=== PATIENT | male | born 1960 | race Caucasian/White ===

== ENCOUNTER 2016-09-16 22:00 | Inpatient (IN) | payer OTHER ==
[~2016-09-16] VITALS: Ht 185.4 cm; Wt 101.4 kg
[~2016-09-16 22:00] MED LIST: OXYC30TA PO; PAXI20TA26 PO; XANA2TAB2 PO
[2016-09-16 23:10] VITALS: BP 139/84; PULSE 70; RESP 16; TEMP 97.9; O2SAT 97
[2016-09-16] MEDS ORDERED: LORazepam 2 MG/ML VIAL IM PRN (23:45)
[2016-09-16] MEDS ORDERED: LORazepam 1 MG TAB PO PRN (23:45)
[2016-09-16] MEDS ORDERED: MAGNESIUM HYDROXIDE SUSP 30 ML CUP PO PRN (23:45)
[2016-09-16] MEDS ORDERED: ALUMINUM/MAGNESIUM/SIMETH 30 ML CUP PO PRN (23:45)
[2016-09-16] MEDS ORDERED: ACETAMINOPHEN 325 MG TAB PO PRN (23:45)
[2016-09-17] MEDS ORDERED: ZYPR5TAB PO (00:03)
[2016-09-17] MEDS ORDERED: REME15TA PO (00:03)
[2016-09-17 05:36] VITALS: BP 137/87; PULSE 77; RESP 18; TEMP 98; O2SAT 97
[2016-09-17] MEDS: NICOTINE 21 MG/24 HR PATCH T-DERMAL SCH (08:16)
[2016-09-17] MEDS ORDERED: traZODone HCL 50 MG TAB PO PRN (09:45)
[2016-09-17] MEDS: CEPHALEXIN MONOHYDRATE 500 MG CAP PO SCH ×2 (09:45→21:51)
[2016-09-17] MEDS ORDERED: hydrOXYzine HCL 50 MG TAB PO PRN (09:45)
[2016-09-17] MEDS: SULFAMETHOXAZOLE-TRIMETHOPRIM DS 800-160 MG TAB PO SCH ×2 (09:45→21:51)
--- NOTE | 2016-09-17 09:48 | HHI.HP ---
Provisional Diagnosis Admission Date Sep 16, 2016 at 22:00 [place] I. 1. Adjustment disorder, unspecified Suspect malingering for mcfp 2. Polysubstance abuse including cannabis and amphetamines [place] II. 1. Antisocial personality traits [place] V. GAF 50 presently Certification of Person's Competence To Provide Express and Informed Consent I have personally examined Amber Ro , a person being served at [facility] [[email or web address]] on, Sep 17, 2016 09:35. Express and informed consent means consent voluntarily given in writing, by a competent person, after sufficient explanation and disclosure of the subject matter involved to enable the person to make a knowing and willful decision without any element of force, fraud, deceit, duress, or other form of constraint or coercion. This person is 18 years of age or older, is not now known to be incompetent to consent to treatment with a guardian advocate, and does not have a health care surrogate or proxy currently making medical treatment decisions. I have found this person to be one of the following: [x] Competent to provide express and informed consent, as defined above, for voluntary admission to this facility and is competent to provide express and informed consent for treatment. He/she has the consistent capacity to make well reasoned, willful, and knowing decisions concerning his or her medical or mental health treatment. The person fully and consistently understands the purpose of the admission for examination/placement and is fully capable of personally exercising all rights assured under [place] Incompetent to provide express and informed consent to voluntary admission, and this is incompetent to provide express and informed consent to treatment. The person must be transferred to involuntary status and a petition for a guardian advocate filed with the Circuit Court. [] Refusing to provide express and informed consent to voluntary admission but is competent to provide express and informed consent for treatment. The person must be discharged or transferred to involuntary status. Form shall be completed within 24 hours of a person's arrival at the receiving facility and filed in the clinical record of each person: 1. Admitted on a voluntary basis 2. Permitted to provide express and informed consent to his/her own treatment 3. Allowed to transfer from involuntary to voluntary status 4. Prior to permitting a person to consent to his or her own treatment after having been previously found incompetent to consent to treatment. History of Present Illness Capacity: Has Capacity HPI Mr. Ro is a 56-year-old male with a reported history of bipolar disorder who presents in transfer from [facility] under a Gonzales act. Documentation from [place] reviewed. Patient presented there with reports of suicidal ideation either to hang himself or to set himself on fire. He was placed under a Gonzales act by the ED provider. Urine toxicology at outside hospital was positive for cannabinoids and amphetamines. Reviewing our own electronic medical record, I note that the patient presented to the ED in 2010 following a Xanax ingestion. Patient seen and examined with counselor and his nurse. Chart reviewed. Case discussed with nursing staff. The patient presents as singularly unengaged in the interview. He is a fairly vague historian. Antisocial personality traits are noted. When I asked why the patient has come into the hospital he says that he is not sure. He does say that he wants to get on medications, although it is unclear for what symptomatology. He does not describe any depressive or hypomanic/manic symptoms. He denies suicidal or homicidal ideation at this time. He contracts for safety. He denies audiovisual hallucinations and I can elicit no delusional material. The remainder of the psychiatric ROS is negative. Past psychiatric history: The patient reports a history of bipolar disorder, reportedly diagnosed here at age 18. He is not currently under the care of a psychiatrist. He is on no psychotropic medications. He apparently was admitted to [facility] within the last month but reportedly lost the psychotropics that he was provided on discharge and did not follow-up. He denies a history of suicide attempts. Family history: Patient is unsure of family history of mental illness. He denies a family history of substance use disorder or suicide. Chemical dependency history: The patient reports occasional cannabis use. He also reports occasional amphetamine use and insists that his last use of either substance was over a week ago. Social history: The patient is presently without stable housing. He was apparently residing with his mother and stepbrother by did not get along with the latter and so is no longer welcome in that home. He is single. He has 2 sons. He denies any or legal history. Denies any access to guns or firearms. Denies any history of physical, verbal or sexual abuse. He attended school through the 10th grade and subsequently got a GED. He is not presently working. Review of Systems Except as stated in HPI: all other systems reviewed are Neg Past Psych History Psychological trauma history See above Violence risk - others (6 mos) Denies HI. No known h/o violence. Substance use is a chronic risk factor. Violence risk - self (6 mos) Denies SI. Denies h/o SA. Denies FH SA. Substance use is a risk factor. Substance Abuse History Drugs/Alcohol past 12 months See above Past Family Social History Coded Allergies: Valium (Verified Allergy, Severe, 11/19/10) Pt states he does not like the way med makes him feel. Past Medical History See EMR Reported Medications Olanzapine (Zyprexa)5 Mg Tab5 Mg PO BID #60 TAB Ref 0 09/17/16 Mirtazapine (Remeron)15 Mg Tab15 Mg PO HS #30 TAB Ref 0 09/17/16 Alprazolam (Xanax 2 mg)2 Mg Tab2 Mg PO BID 11/19/10 Paroxetine Hcl (Paxil)20 Mg Tab20 Mg PO DAILY 11/19/10 Oxycodone 30 Mg Tab30 Mg PO QID 11/19/10 Current Medications Medications (Trade) Dose Ordered Sig/Lin Route Start Time Stop Time Status Last Admin (Tylenol) 650 mg Q4H PRN PO 09/16/16 23:45 (Milk Of Magnesia Liq) 30 ml DAILY PRN PO 09/16/16 23:45 (Mag-Al Plus Susp Liq) 30 ml Q6H PRN PO 09/16/16 23:45 (Habitrol 21 Mg Patch.24 Hr) 1 patch DAILY T-DERMAL 09/17/16 09:00 Miscellaneous Information 1 HS T-DERMAL 09/17/16 21:00 (Ativan) 1 mg Q6H PRN PO 09/16/16 23:45 (Ativan Inj) 1 mg Q6H PRN IM 09/16/16 23:45 Family History See above Social History See above Patient's Strengths (min. 2) In monitored setting. Verbally fluent. Physical Exam PE completed at outside hospital. On my exam, patient is in no distress. No motor abnormalities noted. Labs and vitals reviewed: Vital Signs Vital Signs Date Time Temp Pulse Resp B/P Pulse Ox O2 Delivery O2 Flow Rate FiO2 09/17/16 05:36 98.0 77 18 137/87 97 Lab Results Laboratories from outside hospital reviewed: CBC unremarkable. CMP reveals mild hyperglycemia in a nonfasting sample. Very mild transaminitis. Urinalysis reviewed. Urine toxicology positive for amphetamines and cannabinoids. Alcohol level undetectable. Mental Status Examination Patient is in hospital gown. He is fairly well groomed and maintaining basic hygiene. He is awake and alert and oriented to person and hospital at least. No motor abnormalities noted. Speech somewhat slow but otherwise within normal limits for tone and volume. Language and fund of knowledge average. Focus and concentration fairly intact. Memory grossly intact on clinical exam. No issues with mood described, affect is somewhat restricted and dysphoric. Thought process linear. No loosening of associations. No delusional material elicited. Denies audiovisual hallucinations. Denies suicidal or homicidal ideation, intent or plan. Insight and judgment are likely chronically poor. Assessment & Plan Problem List: (1) Adjustment disorder ICD Code: F43.20 (2) Polysubstance abuse ICD Code: F19.10 (3) Suspect malingering for mcfp Assessment & Plan This is a 56-year-old male with psychiatric history as detailed above who presents under [facility] and transfer from outside hospital. Patient apparently presented to outside hospital reporting suicidal ideation. Patient denies suicidal or homicidal ideation to me. He has a dearth of psychiatric symptoms generally and seems fairly unengaged in the interview. He was apparently hospitalized at [facility] about a month ago but did not take the medications that he was prescribed and did not follow-up psychiatrically. My suspicion is that the patient is either experiencing a resolving drug-induced mood disorder related to his amphetamine and cannabis use, or else he is malingering for mcfp. I will plan to observe the patient briefly on the unit for safety. Admitted inpatient. Voluntary status. No scheduled psychotropics as it is not clear that any are indicated in the present case. Atarax as needed for anxiety. Trazodone as needed for sleep. Continue Keflex and Bactrim as ordered by ED provider. [Update: Consult hospitalist for HTN.] Vitals every shift. Counselor to see. Disposition planning. Estimate length of stay: 2-3 days. Discharge Planning Pending outcome of observation. Request HC Surrog/Guard Advoc?: No Problem Qualifiers (1) Adjustment disorder: Qualified Code: F43.20 - Adjustment disorder, unspecified type Nico Dhillon MD Sep 17, 2016 09:48
[2016-09-17 15:44] VITALS: BP_SYST 162; BP_SYST 170; BP_DIAS 100; BP_DIAS 74
[2016-09-17] MEDS ORDERED: cloNIDine HCL 0.1 MG TAB PO PRN (15:45)
[2016-09-17 15:53] VITALS: BP 170/100; PULSE 64; RESP 18; TEMP 98.2; O2SAT 97
[2016-09-17 16:19] VITALS: BP 159/102
[2016-09-17 17:36] VITALS: BP 140/86
[2016-09-17 18:00] VITALS: BP 162/74; PULSE 64; RESP 20; TEMP 98.2; O2SAT 97
[2016-09-17] MEDS: REMOVE OLD NICOTINE PATCH T-DERMAL SCH (21:00)
[2016-09-18 06:05] VITALS: BP 170/94; PULSE 65; RESP 16; TEMP 98.6; O2SAT 97
[2016-09-18] MEDS: NICOTINE 21 MG/24 HR PATCH T-DERMAL SCH (09:00)
[2016-09-18] MEDS: SULFAMETHOXAZOLE-TRIMETHOPRIM DS 800-160 MG TAB PO SCH ×2 (09:24→21:56)
[2016-09-18] MEDS: CEPHALEXIN MONOHYDRATE 500 MG CAP PO SCH (09:24)
[2016-09-18 10:08] LABS: ANION GAP 5 MEQ/L (5-15); BICARBONATE 28.7 MEQ/L (21.0-32.0); CHLORIDE 107 MEQ/L (98-107); GLOMERULAR FILTRATION RATE 80 ML/MIN (>89); POTASSIUM 4.1 MEQ/L (3.5-5.1); SODIUM (NA) 141 MEQ/L (136-145)
[2016-09-18 10:11] LABS: HDL CHOLESTEROL 43.2 MG/DL (40.0-60.0); LDL CHOLESTEROL 124 MG/DL (0-99)
[2016-09-18 10:15] LABS: BLOOD UREA NITROGEN 13 MG/DL (7-18)
--- NOTE | 2016-09-18 14:53 | HHI.PYPN ---
Subjective Remarks Patient seen and examined with counselor. Chart reviewed. Case discussed with treatment team. On my examination today, the patient remains seclusive to room , participating little in unit activities. He is coming out for meals. Says " I want to stay 1 more day." Now says that he feels a little depressed. Denies suicidal or homicidal ideation. Denies audiovisual hallucinations. Says that he has done well in the past with Prozac. Abilify gave him headaches. No side effects from medications. No physical complaints. Review of Systems Except as stated in HPI: all other systems reviewed are Neg Objective Alert: Yes [place]: Person (oriented 3) Mood: Depressed (mild) Affect: Blunted Memory Intact: Comment (intact on clinical exam) Hallucinations: Other (denies AVH) Delusions: No Delusion Type: Other (no delusions elicited) Suicidal: Ideation (denies SI) Homicidal: Ideation (denies HI) Insight/Judgment Fair Remarks No motor abnormalities. Thought process linear. Grooming and hygiene fair. Labs Test 09/18/16 07:58 Sodium Level 141 MEQ/L Potassium Level 4.1 MEQ/L Chloride Level 107 MEQ/L Carbon Dioxide Level 28.7 MEQ/L Anion Gap 5 MEQ/L Blood Urea Nitrogen 13 MG/DL Creatinine 0.97 MG/DL Estimat Glomerular Filtration 80 ML/MIN Rate Random Glucose 80 MG/DL Calcium Level 8.6 MG/DL Triglycerides Level 135 MG/DL Cholesterol Level 194 MG/DL LDL Cholesterol 124 MG/DL HDL Cholesterol 43.2 MG/DL Cholesterol/HDL Ratio 4.49 RATIO Labs reviewed. Vitals/IOs Vital Signs Date Time Temp Pulse Resp B/P Pulse Ox O2 Delivery O2 Flow Rate FiO2 09/18/16 06:05 98.6 65 16 170/94 97 Assessment & Plan Problem List: (1) Adjustment disorder ICD Code: F43.20 (2) Polysubstance abuse ICD Code: F19.10 (3) Suspect malingering for senior living Assessment & Plan: Continue to suspect component of malingering for senior living Assessment & Plan Add Prozac 20 mg daily. Appreciate hospitalist input. Continue other medication and care as ordered. Justification for Cont. Inpt. Medication changes Discharge Planning Possible discharge tomorrow, Saturday Request HC Surrog/Guard Advoc?: No Problem Qualifiers (1) Adjustment disorder: Qualified Code: F43.20 - Adjustment disorder, unspecified type Nico Dhillon MD Sep 18, 2016 14:53
--- NOTE | 2016-09-18 15:30 | PD.CONS ---
[facility] By [facility]iatry team Reason for Consult Medical Management Primary Care Physician No Primary Care Physician Diagnoses: History of Present Illness Written by Marcelo Hinojosa, acting as scribe for Dr. De Los Santos on 09/18/16 at 15: 01. Patient is a 56 year old male with primary medical history of depression, HTN, HLD, lung tumor, chronic back pain who came into the [facility] secondary to depression suicidal ideation. Patient was subsequently transferred to [facility] for further evaluation, under Gonzales act. His admitted to inpatient psychiatry unit for further evaluation. Consulted for medical management. Patient seen and examined today. He reports he came to the hospital because of worsening depression and thoughts of hurting himself. States that he has a history of hypertension and has been on medication Norvasc but is not taking it anymore. Patient states he stopped taking the medication but would not give any reason for it. 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 Admits to snorting amphetamines and cannabis. Patient reports left buttock abscess that he's been taking an antibiotic. Denies pain and discomfort. Denies SOB/ dyspnea. Denies chest pain, palpitations, headaches, dizziness. Denies fevers, chills, n/v/d. Denies dysuria. Review of Systems Except as stated in HPI: all other systems reviewed are Neg Past Family Social History Allergies: Coded Allergies: Valium (Verified Allergy, Severe, 11/19/10) Pt states he does not like the way med makes him feel. Past Medical History Depression HTN HLD Long-term or Chronic back pain Past Surgical History Right lung lobectomy 2009 Reported Medications Reported Meds & Active Scripts Active Reported Zyprexa (Olanzapine) 5 Mg Tab 5 Mg PO BID Remeron (Mirtazapine) 15 Mg Tab 15 Mg PO HS Xanax 2 mg (Alprazolam) 2 Mg Tab 2 Mg PO BID Paxil (Paroxetine HCl) 20 Mg Tab 20 Mg PO DAILY Oxycodone (Oxycodone HCl) 30 Mg Tab 30 Mg PO QID Active Ordered Medications Current Medications Medications (Trade) Dose Ordered Sig/Lin Route Start Time Stop Time Status Last Admin (Tylenol) 650 mg Q4H PRN PO 09/16/16 23:45 (Milk Of Magnesia Liq) 30 ml DAILY PRN PO 09/16/16 23:45 (Mag-Al Plus Susp Liq) 30 ml Q6H PRN PO 09/16/16 23:45 (Habitrol 21 Mg Patch.24 Hr) 1 patch DAILY T-DERMAL 09/17/16 09:00 Miscellaneous Information 1 HS T-DERMAL 09/17/16 21:00 (Atarax) 50 mg Q6H PRN PO 09/17/16 09:45 (Desyrel) 50 mg HS PRN PO 09/17/16 09:45 (Keflex) 500 mg BID PO 09/17/16 09:45 09/27/16 09:44 09/18/16 09:24 (Bactrim Ds 800-160 Mg) 1 tab Q12HR PO 09/17/16 09:45 09/27/16 09:44 09/18/16 09:24 (Catapres) 0.1 mg Q8HR PRN PO 09/17/16 15:45 09/17/16 16:17 Family History Denies any family history of diabetes, heart disease Social History Denies alcohol use Current day smoker 1 pack per day Reports occasional amphetamine use - snorting, cannabis use Physical Exam Vital Signs Vital Signs Date Time Temp Pulse Resp B/P Pulse Ox O2 Delivery O2 Flow Rate FiO2 09/18/16 06:05 98.6 65 16 170/94 97 09/17/16 18:00 98.2 64 20 162/74 97 09/17/16 17:36 140/86 09/17/16 16:19 159/102 09/17/16 15:53 98.2 64 18 170/100 97 09/17/16 15:44 162/74 09/17/16 15:44 170/100 Physical Exam GENERAL: This is a well-nourished, well-developed patient, in no apparent distress. SKIN: Right buttock abscess open, not draining, approximately 2 cm x 2cm diameter. HEAD: Atraumatic. Normocephalic. No temporal or scalp tenderness. EYES: Pupils equal round and reactive. Extraocular motions intact. No scleral icterus. No injection or drainage. ENT: Nose without bleeding. Throat without erythema. Uvula midline. Airway patent. NECK: Trachea midline. CARDIOVASCULAR: Regular rate and rhythm without murmurs, gallops, or rubs. RESPIRATORY: Clear to auscultation. Breath sounds equal bilaterally. No wheezes , rales, or rhonchi. GASTROINTESTINAL: Abdomen soft, non-tender, nondistended. Bowel sounds active 4. MUSCULOSKELETAL: Extremities without clubbing, cyanosis, or edema. NEUROLOGICAL: Awake and alert. Oriented to person, place. Motor and sensory grossly within normal limits. Normal speech. Laboratory Laboratory Tests Test 09/18/16 07:58 Sodium Level 141 Potassium Level 4.1 Chloride Level 107 Carbon Dioxide Level 28.7 Anion Gap 5 Blood Urea Nitrogen 13 Creatinine 0.97 Estimat Glomerular Filtration 80 Rate Random Glucose 80 Calcium Level 8.6 Triglycerides Level 135 Cholesterol Level 194 LDL Cholesterol 124 HDL Cholesterol 43.2 Cholesterol/HDL Ratio 4.49 Result Diagram: 09/18/16 0758 Assessment and Plan Problem List: (1) Polysubstance abuse ICD Code: F19.10 Status: Acute (2) Left buttock abscess ICD Code: L02.31 Status: Acute (3) HLD (hyperlipidemia) ICD Code: E78.5 Status: Acute (4) HTN (hypertension) ICD Code: I10 Status: Acute Assessment and Plan Patient is a 56 year old male with primary medical history of depression, HTN, HLD, lung tumor, chronic back pain who came into the [facility] secondary to depression suicidal ideation. Patient was subsequently transferred to [facility] for further evaluation, under Gonzales act. His admitted to inpatient psychiatry unit for further evaluation. Consulted for medical management. Depression, suicidal ideation - Managed by psychiatry team Left buttock abscess - No leukocytosis noted on previous labs from [facility] - Patient is being treated with Keflex and Bactrim. Will DC Keflex and continue with Bactrim. - Discuss with patient wound abscess needs to be clean and Cleaned at all times. Verbalized understanding. HTN - Will restart Norvasc - Clonidine when necessary - Trend BP HLD - Elevated LDL 124 on recent lab - ASCVD risk 21.1 10 year risk. Recommended moderate to high intensity statin use - Will discuss with patient starting on statin DVT prop early ambulation, patient ambulatory This note was transcribed by paco [Marcelo Hinojosa]. I, Dr. Kristie De Los Santos personally performed the history, physical exam, and medical decision making; and confirmed the accuracy of the information in the transcribed note. Authenticated by Dr. Kristie De Los Santos on 09/18/16 at 15:10. Code Status Full code Discussed Condition With Patient, nursing Marcelo Ortega Sep 18, 2016 15:30 Kristie De Los Santos MD Sep 18, 2016 15:59
[2016-09-18 16:13] LABS: HEMOGLOBIN A1b 0.8 %; HEMOGLOBIN Ao 85.8 %; HEMOGLOBIN F 0.9 %; HEMOGLOBIN LA1C 1.8 %; HEMOGLOBIN P3 3.6 %
[2016-09-18 18:00] VITALS: BP 155/100; PULSE 65; RESP 18; TEMP 98.1; O2SAT 98
[2016-09-18] MEDS: FLUoxetine HCL 20 MG CAP PO SCH (18:42)
[2016-09-18] MEDS: amLODIPine BESYLATE 5 MG TAB PO SCH (18:42)
[2016-09-18] MEDS: REMOVE OLD NICOTINE PATCH T-DERMAL SCH (21:00)
[2016-09-18 21:18] LABS: HEMATOCRIT 42.9 % (39.0-51.0); MEAN CELL VOLUME 91.6 FL (80.0-100.0); MEAN CORPUSCULAR HEMOGLOBIN 30.6 PG (27.0-34.0); MEAN CORPUSCULAR HGB CONC 33.5 % (32.0-36.0); PLATELET COUNT 162 TH/MM3 (150-450); RED BLOOD COUNT 4.68 MIL/MM3 (4.50-5.90); RED CELL DISTRIBUTION WIDTH 14.3 % (11.6-17.2); REVIEW FLAG FINAL; WHITE BLOOD COUNT 6.3 TH/MM3 (4.0-11.0)
[2016-09-19 06:14] VITALS: BP 150/90; PULSE 67; RESP 20; TEMP 97.9; O2SAT 94
[2016-09-19] MEDS: NICOTINE 21 MG/24 HR PATCH T-DERMAL SCH (09:00)
[2016-09-19] MEDS: FLUoxetine HCL 20 MG CAP PO SCH (09:27)
[2016-09-19] MEDS: SULFAMETHOXAZOLE-TRIMETHOPRIM DS 800-160 MG TAB PO SCH (09:27)
[2016-09-19] MEDS: amLODIPine BESYLATE 5 MG TAB PO SCH (09:27)
[2016-09-19] MEDS ORDERED: FLUO20CA12 PO (10:41)
[2016-09-19] MEDS ORDERED: SULF1TAB23 PO (10:41)
--- NOTE | 2016-09-19 10:41 | HHI.DS ---
Psychiatry Discharge Summary Inpatient Psychiatric care?: Yes Advance Directive: No Reason Not Provided: declined Mental Health AdvanceDirective: No Health Care Proxy: No Admission Admission Date Sep 16, 2016 at 22:00 Admission Diagnosis: (1) Adjustment disorder ICD Code: F43.20 (2) Polysubstance abuse ICD Code: F19.10 (3) Suspect malingering for snf Brief History Mr. Ro is a 56-year-old male with a reported history of bipolar disorder who presents in transfer from [facility] under a Gonzales act. Documentation from [facility] reviewed. Patient presented there with reports of suicidal ideation either to hang himself or to set himself on fire. He was placed under a Gonzales act by the ED provider. Urine toxicology at outside hospital was positive for cannabinoids and amphetamines. Reviewing our own electronic medical record, I note that the patient presented to the ED in 2010 following a Xanax ingestion. Patient seen and examined with counselor and his nurse. Chart reviewed. Case discussed with nursing staff. The patient presents as singularly unengaged in the interview. He is a fairly vague historian. Antisocial personality traits are noted. When I asked why the patient has come into the hospital he says that he is not sure. He does say that he wants to get on medications, although it is unclear for what symptomatology. He does not describe any depressive or hypomanic/manic symptoms. He denies suicidal or homicidal ideation at this time. He contracts for safety. He denies audiovisual hallucinations and I can elicit no delusional material. The remainder of the psychiatric ROS is negative. Past psychiatric history: The patient reports a history of bipolar disorder, reportedly diagnosed here at age 18. He is not currently under the care of a psychiatrist. He is on no psychotropic medications. He apparently was admitted to [facility] within the last month but reportedly lost the psychotropics that he was provided on discharge and did not follow-up. He denies a history of suicide attempts. Family history: Patient is unsure of family history of mental illness. He denies a family history of substance use disorder or suicide. Chemical dependency history: The patient reports occasional cannabis use. He also reports occasional amphetamine use and insists that his last use of either substance was over a week ago. Social history: The patient is presently without stable housing. He was apparently residing with his mother and stepbrother by did not get along with the latter and so is no longer welcome in that home. He is single. He has 2 sons. He denies any or legal history. Denies any access to guns or firearms. Denies any history of physical, verbal or sexual abuse. He attended school through the 10th grade and subsequently got a GED. He is not presently working. Tobacco Use In Past 30 Days: Cigars and/or Pipe Daily Alcohol Use: Never Hospital Course Patient was admitted to a locked, inpatient psychiatric unit. A general medical consultation was obtained. Appropriate precautions were in place throughout patient's hospital stay. Patient was seen and examined daily on the unit by psychiatry and also visited by counselor. Psychotropic medications were adjusted. There was no evidence of any suicidality or homicidality on the inpatient unit. Patient remained in good behavioral control and was medication compliant. Besides coming out for meals, the patient participated little in unit activities. Malingering for snf is suspected. On the day of discharge : Patient seen and examined with counselor and nurse. Chart reviewed. Case discussed with nursing staff. Patient no behavioral problem overnight. On my examination today, the patient remains fairly unengaged. He denies any suicidal or homicidal ideation, intent or plan and contracts for safety. He denies any audiovisual hallucinations I can elicit no delusional beliefs. No mood symptoms elicited. He denies side effects from medications. No physical complaints. Weighing the acute, chronic, and protective factors and based on the available evidence, I relations liaison to a reasonable degree of medical certainty that the patient is at low imminent risk of harm to self or others, mental illness as defined under the Gonzales act and his level of function is adequate for outpatient care. Patient has maximized benefit from this inpatient psychiatric hospital stay will be discharged today with psychiatric follow-up as arranged by counselor. Patient is also to follow-up with primary care. I counseled the patient regarding warning signs for need to return to the psychiatric emergency room as part of the general safety plan. Results Blood Pressure 150 / 90 Vital Signs Date Time Temp Pulse Resp B/P Pulse Ox O2 Delivery O2 Flow Rate FiO2 09/19/16 06:14 97.9 67 20 150/90 94 Laboratory Tests Test 09/18/16 07:58 Estimat Glomerular Filtration 80 ML/MIN (>89) Rate LDL Cholesterol 124 MG/DL (0-99) Laboratory Results Test 09/18/16 07:58 Hemoglobin A1c 5.6 % (4.3-6.0) Triglycerides Level 135 MG/DL (42-150) Cholesterol Level 194 MG/DL (120-200) LDL Cholesterol 124 MG/DL (0-99) HDL Cholesterol 43.2 MG/DL (40.0-60.0) Summary of Procedures None done Imaging None done Pending results at discharge: No Medications # of Antipsychotic meds at D/C: 1 Approp Antipsych med options 1 - Minimum of three failed multiple trials of monotherapy. 2 - Documented plan to taper to monotherapy due to previous use of multiple meds OR cross-taper in progress at D/C. 3 - Documentation of augmentation of Clozapine. 4 - Justification other than those listed in allowable values 1-3, document here : Discharge Discharge Date: Sep 19, 2016 Discharge Diagnosis: (1) Polysubstance abuse Diagnosis: Principal (counseled to quit) ICD Code: F19.10 (2) Malingering for snf, Z76.5 Diagnosis: Secondary Mental Status Exam at Disch Patient is casually dressed. He is well groomed and maintaining basic hygiene. Patient is awake and alert and oriented to person and hospital at least. No delirium. No motor abnormalities. Speech is within normal limits for rate, tone, volume. Mood is fair and affect is blunted. Thought processes linear. No delusions elicited. Denies audiovisual hallucinations and does not appear internally stimulated. Denies suicidal or homicidal ideation, intent, or plan. Insight and judgment seem fair. Pt Condition on Discharge: Stable Discharge Disposition: Discharge Home Discharge Instructions Diet Instructions: As Tolerated, No Restrictions Activities you can perform: Weight Bearing as [place] Scheduled Appointment: as per counselor's notes New Medications: Amlodipine (Norvasc) 5 Mg Tab 5 MG PO DAILY Blood Pressure Management Days 30 TAB Fluoxetine (Fluoxetine) 20 Mg Capsule 20 MG PO DAILY Mental Health Days 15 Ref 1 CAP Sulfamethoxazole-Trimethoprim (Sulfamethoxazole-Trimethoprim) 800-160 Mg Tab 1 TAB PO Q12HR Antibiotic Days 9 Ref 0 TAB Discontinued Medications: Alprazolam (Xanax 2 mg) 2 Mg Tab 2 MG PO BID Mirtazapine (Remeron) 15 Mg Tab 15 MG PO HS Depression Control #30 Ref 0 TAB Olanzapine (Zyprexa) 5 Mg Tab 5 MG PO BID #60 Ref 0 TAB Oxycodone (Oxycodone) 30 Mg Tab 30 MG PO QID Paroxetine Hcl (Paxil) 20 Mg Tab 20 MG PO DAILY Discharge Time <= 30 minutes Discharge/Advance Care Plan Health Problems: (1) Adjustment disorder (2) Polysubstance abuse (3) Suspect malingering for snf Goals to promote your health * To prevent worsening of your condition and complications * To maintain your health at the optimal level Directions to meet your goals Take your medications as prescribed Follow your dietary instruction Follow activity as directed Keep your appointments as scheduled Take your immunizations and boosters as scheduled If your symptoms worsen call your PCP, if no PCP go to Urgent Care Center or Emergency Room For 17/09 questions related to your inpatient stay or results of tests pending at discharge, please contact Dr. Nico Dhillon at Smoking is Dangerous to Your Health. Avoid second hand smoking Problem Qualifiers (1) Adjustment disorder: Qualified Code: F43.20 - Adjustment disorder, unspecified type Nico Dhillon MD Sep 19, 2016 10:41
[2016-09-19 12:31] LABS: INDIRECT BILIRUBIN 0.3 MG/DL (0.0-0.8); TOTAL BILIRUBIN ADULT 0.4 MG/DL (0.2-1.0)
[2016-09-19] MEDS ORDERED: AMLO5 PO (15:00)
== END 2016-09-19 16:15 | disposition home or self-care (01) | DRG 882 ==
LOC: H260 22:00
PROVIDERS: ADMIT Psychiatry & Neurology Psychiatry; ATTEND Psychiatry & Neurology Psychiatry
DX: F43.20 Adjustment disorder, unspecified (principal); R45.851 Suicidal ideations; I10 Essential (primary) hypertension; L02.31 Cutaneous abscess of buttock; F19.94 Other psychoactive substance use, unspecified with psychoactive substance-induced mood disorder; F12.90 Cannabis use, unspecified, uncomplicated; Z76.5 Malingerer [conscious simulation]; F15.90 Other stimulant use, unspecified, uncomplicated; F31.9 Bipolar disorder, unspecified; F60.2 Antisocial personality disorder; E78.5 Hyperlipidemia, unspecified; F17.210 Nicotine dependence, cigarettes, uncomplicated
CPT/HCPCS: 80048; 80061; 80076; 83036; 85027